=== PATIENT | female | born 1940 | race Caucasian/White ===

== ENCOUNTER → 2018-12-30 | Outpatient (CLI) | payer MEDICARE, OTHER ==
[~2018-12-30] MED LIST: CALC600T63 PO; CARB-127 PO; DENOSUMAB 60 MG/1 ML SYR SUBQ ONE; HYDR-2966 PO; LISI-353 PO; LISI20TA29 PO; ROPI0.2530 PO; SINCR502 PO
[2018-12-30 15:11] VITALS: BP 135/78
== END ==
LOC: SPU 08:22
PROVIDERS: ATTEND Physician Assistant
DX: Z85.3 Personal history of malignant neoplasm of breast (principal); Z79.890 Hormone replacement therapy; D51.9 Vitamin B12 deficiency anemia, unspecified
CPT/HCPCS: 36415; 82607; 96372; J0897; 82310; 82374; 82435; 82565; 82947; 84132; 84295; 84520